=== PATIENT | female | born 2000 | race Hispanic/Latino ===

== ENCOUNTER 2024-06-11 09:15 | Day surgery (SDC) | payer OTHER, SELFPAY ==
[2024-06-11] MEDS ORDERED: Acetaminophen 500 MG TAB ONE (09:29)
[2024-06-11] MEDS: Acetaminophen 500 MG TAB PO SCH (09:31)
[2024-06-11] MEDS ORDERED: diphenhydrAMINE 50 MG/ML VIAL ONE (09:53)
[2024-06-11] MEDS: diphenhydrAMINE 50 MG/ML VIAL IVP SCH (09:55)
[2024-06-11] MEDS: Iron Sucrose Complex 500 MG in Sodium Chloride 0.9% 250 ML IVPB SCH (10:09)
[2024-06-11 14:54] VITALS: BP 99/55; TEMP 98.1
== END 2024-06-11 15:36 | disposition home or self-care (01) ==
LOC: ONC/OP 09:15
PROVIDERS: ATTEND Family Medicine
DX: O99.013 Anemia complicating pregnancy, third trimester (principal); Z3A.33 33 weeks gestation of pregnancy; Z88.8 Allergy status to other drugs, medicaments and biological substances; Z79.899 Other long term (current) drug therapy
CPT/HCPCS: 96365; 96366; 96375; J1200; J1756; J7050